=== PATIENT | male | born 1960 | race Caucasian/White ===

== ENCOUNTER 2018-02-20 16:47 | Emergency (ER) | payer MEDICAID, OTHER ==
[2018-02-20] MEDS ORDERED: OLANZapine 10 MG/2 ML VIAL IM ONE (17:01)
--- NOTE | 2018-02-20 17:04 | EDPHY ---
H & P Source: Patient Exam Limitations: No limitations - Family History Significant Family History: No pertinent family hx Time Seen by Provider: 02/20/18 16:53 HPI/ROS: CHIEF COMPLAINT: Psychosis HISTORY OF PRESENT ILLNESS: The patient has a history of bipolar mood disorder. He presents to the ED with pressured speech, agitation and confusion. The patient reports he has not been taking his lithium for the past several days or weeks. The patient reportedly was recently hospitalized at the [facility] as an inpatient. The patient was [place] walking [place] shopping [place] nonsensical in disoriented. He was placed on an M1 psychiatric hold by police and brought to the emergency department. REVIEW OF SYSTEMS: A comprehensive 10 point review of systems is otherwise negative aside from elements mentioned in the history of present illness. (Kevyn Gupta) - Physical Exam Exam: General Appearance: Alert, no distress Eyes: Pupils equal and round no pallor or injection ENT, Mouth: Mucous membranes moist Respiratory: There are no retractions, lungs are clear to auscultation Cardiovascular: Regular rate and rhythm Gastrointestinal: Abdomen is soft and nontender, no masses, bowel sounds normal Neurological: A&O, normal motor function, normal sensory exam, normal cranial nerves Skin: Warm and dry, no rashes Musculoskeletal: Neck is supple nontender Extremities: symmetrical, full range of motion Psychiatric: Tangential, pressured speech, slightly agitated, denies suicidal or homicidal ideation (Kevyn Gupta) Constitutional: Initial Vital Signs Temperature (C) 37 C 02/20/18 16:47 Heart Rate 77 02/20/18 16:47 Respiratory Rate 16 02/20/18 16:47 Blood Pressure 147/106 H 02/20/18 16:47 O2 Sat (%) 97 02/20/18 16:47 O2 Delivery Mode Room Air Allergies/Adverse Reactions: No Known Allergies Allergy (Unverified 02/20/18 16:56) Home Medications: Medication Instructions Recorded [employer] Carbonate 02/20/18 Seroquel 02/20/18 Synthroid 02/20/18 Medical Decision Making ED Course/Re-evaluation: The patient presents to the ED with psychosis and likely decompensated bipolar mood disorder. Patient did take 10 mg of oral Zyprexa. Screening laboratory studies were sent. The patient has been cooperative throughout his stay in the emergency department. The patient did respond to oral Zyprexa and is resting comfortably in the room at 6:00 p.m.. The patient has been medically cleared for psychiatric evaluation by myself at 6 :00 p.m.. The patient is turned over to Dr. Morris at shift change. He is given another 10mg of Zyprexa at 9pm. (Kevyn Gupta) I took over care of this patient at 8:30 p.m.. This patient is on an M1 hold for psychosis and decompensated bipolar mood disorder. He has been seen and evaluated by Behavioral Health. They will admit him for inpatient management. They are contacting the [place] currently where he has been admitted before. 10:20 p.m., the patient was up, pacing, agitated. The patient was given 10 mg of oral Valium. 11:00 p.m., the patient's remaining emergency department course under my care has been uneventful. The patient awaits admission for inpatient psychiatric management. Care turned over to Dr. Jose Weber at this time. (Raphael Morris) 0615: Patient sleeping throughout the evening. No acute events. Pending Placement. On m1 Hold. Bipolar/psychosis. Signed over at 6:30 a.m. Shift change to Dr. Andrew. (Jose Weber) Differential Diagnosis: Differential diagnosis considered includes psychosis, bipolar mood disorder, methamphetamine intoxication, substance abuse (Kevyn Gupta) Other Provider: Care assumed at 6:35 a.m. Plan for inpatient placement for bipolar disorder. 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 Awaiting acceptance at receiving facility. 1050: Patient personally evaluated. Ambulatory, cooperative. Discussed with accepting physician at this time on the phone by his request. The patient will be transferred to [facility] for inpatient psychiatric hospital bed not available at this facility, in stable condition; accepting physician is Dr. Pro. EMTALA form completed. (Omar Andrew) - Data Points Laboratory Results: Laboratory Results 02/20/18 17:14 02/20/18 17:14 Medications Given: Discontinued Medications Diazepam (Valium) 10 mg PO EDNOW ONE Stop: 02/20/18 22:17 Last Admin: 02/20/18 22:19 Dose: 10 mg Olanzapine (Zyprexa Injection) 10 mg IM EDNOW ONE Stop: 02/20/18 17:02 Last Admin: 02/20/18 17:19 Dose: Not Given Olanzapine (Zyprexa Zydis) 10 mg PO EDNOW ONE Stop: 02/20/18 17:16 Last Admin: 02/20/18 17:19 Dose: 10 mg Olanzapine (Zyprexa Zydis) 10 mg PO EDNOW ONE Stop: 02/20/18 20:35 Last Admin: 02/20/18 20:37 Dose: 10 mg Olanzapine (Zyprexa Zydis) 10 mg PO EDNOW ONE Stop: 02/21/18 09:33 Last Admin: 02/21/18 09:35 Dose: 10 mg Departure - Departure Disposition: Other Psych, Not Monika Clinical Impression: Bipolar 1 disorder Condition: Fair Referrals: Patient,NotPresent [Primary Care Provider] - As per Instructions
[2018-02-20] MEDS ORDERED: OLANZapine DISINTEGR 10 MG TAB PO ONE ×2 (17:15→20:34)
[2018-02-20 17:26] LABS: PLATELET COUNT 226 10^3/uL (150-400)
[2018-02-20] MEDS ORDERED: OLANZapine DISINTEGR 10 MG TAB ONE (20:33)
--- NOTE | 2018-02-20 22:03 | ASMTLCPROG ---
Notes Note: Notes: PT unable to be assessed to due rambling and illogical speech. PT was just given another 10 mg of Zyprexa. PT was pacing and said multiple times someone was going to hurt him. PT is unable to give any collateral contact information. 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 Date Signed: 02/20/2018 10:03 PM Electronically Signed By:Veronica Morales
[2018-02-20] MEDS ORDERED: DIAZEPAM 5 MG TAB ONE (22:12)
[2018-02-20] MEDS ORDERED: DIAZEPAM 5 MG TAB PO ONE (22:16)
--- NOTE | 2018-02-21 09:12 | ASMTTLCEVL ---
TLC Evaluation - Basic Information Developmental history Notes: Unable to assess Abuse concerns Answers: None Marital status/children Notes: According to Sarah, the patient is . He has two adult children. The patient's divorce was related to his MH issues. Living situation Notes: The patient has lived at home with his father, Sarah, for the past 10 years in [place], [place]. 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 Notes: The patient was in the . The patient's father, Sarah, reported that the patient had his first psychotic break during basic training. Legal Notes: Unable to assess Worship/Spiritual Notes: The patient reported none that would interfere with treatment. He stated, "I love Andrey." Leisure Notes: Unable to assess Collateral Notes: The collateral data was obtained from current and previous [facility] ed records/staff, 27-65 M1, previous providers: 's Administration, and family members: Sarah, father of the patient. Patient's strengths Answers: Funny/Using Humor (Please select at least TWO strengths): Supportive Family Evaluation Start Date and 02/21/2018 07:00 AM Time Hospital Status Answers: M1 Hold 72-hr M1 Hold Start Date 02/20/2018 04:00 PM and Time Patient statement Notes: "They are trying to hurt me. I was a good lexy before all this." "I love you." "Where'd you get that irby? From [place]?" "Can I touch you?" "Can I borrow a pen or do I need one?" "I don't know. I'm not going to hurt nobody." "We don't cuss. I wasn't breaking stuff in the restaurant. I'm sorry. It was a beautiful family. I didn't mean to hurt them." "My brain was feeling crazy." "I love Andrey." "I want to live forever." "I was driving everywhere, I had to get there really fast. I have errands to run; I'm going to call in sick. "I didn't get any rest." Narrative Notes: The patient is a 57 year old male, , unemployed, with a history of Bipolar Disorder. He lives with his father, Sarah in [place], [place]. The patient arrived via EMS on an M1 hold placed by police. Per M1 Hold, "Rodger Perez is bipolar and hadn't taken his medication. Ana demeanor would rapidly change from being subdued to aggressive. Rodger was rambling about someone messing with his radio. Rodger's father was contacted and he stated that Rodger had been admitted to the [place] and was released 3 days prior. Rodger was walking around town and he said her coudn't find his shoes." At the time of initial utox testing in the ed @ 17:15 on 02/20, the patients was positive for Benzodiazepines (0.2). On 02/20/18, the tower hand was unable assess due to "rambling and illogical speech." He was pacing and stated multiple times that "someone was going to hurt him." The [place] hospital was contacted for collateral without response. The patient was given Zyprexa, 10mg. He slept through through the night. On 02/21/18, the patient continues to present with rambling and illogical speech including loose associations. The patient is observed pacing in his room; repeatedly re-positioning himselffrom seated to lying down to standing and walking. He requires consistent redirection. He stated, "I don't know. I'm not going to hurt nobody." "We don't cuss. I wasn't breaking stuff in the restaurant. I'm sorry. It was a beautiful family. I didn't mean to hurt them." "My brain was feeling crazy. "I was driving everywhere, I had to get there really fast. I have errands to run; I'm going to call in sick."I didn't get any rest." The patient's father, Sarah, reported that that patient was home yesterday and decided to "move out because he was breaking everything." Sarah reported that the patient has been sick ever since a medication change in November. He reported the patient was hospitalized at [facility] for several weeks. While the patient was hospitalized, his mother . He reported that the patient took his mattress outside and tore it apart, his father purchased him a new mattress that he refuses to sleep on because it is "jinxed." Per Rita Whatley, "He was discharged 02/17/18 (no discharge summary)He was here for one week." Diagnosis History Notes: The patient has a diagnostic history of Unspecified Bipolar and Related Disorder. Prior suicide attempts Notes: The patient stated "I want to live forever." The patient denied any prior suicide attempts. Prior hospitalizations Notes: The patient was discharged from the [place] on 02/17/18. He was there for one week. The patient was hospitalized at [facility] in November of 2017. Treatment Responses Notes: The patient told police he had stopped taking his medications. He reported taking Seroquel and [place] sporadically. History of violence Notes: Unable to assess Therapist: None Psychiatrist: Dr. Barbara Henderson Medications (name, dosage, route, freq uency) Notes: Per Rita Whatley: [place], 600, mg, PO, HS Quetiapine, 500mg, PO, HS Tamazepam, 30mg, PO, HS Allergies/Reaction Notes: No known allergies Sleep Notes: The patient stated "I didn't get any rest." Appetite Notes: Unable to assess Medical/Surgical history Notes: Unable to assess Substance use history (frequency, intensity, his tory, duration) Notes: Unable to assess Family composition Notes: The patient lives with his father, Sarah in [place], [place]. His 90 y/o mother in November of 2017. Need for family Answers: Yes participation in patient's care Family psychiatric/substance abuse history Notes: Unable to assess TLC Evaluation - Mental Status Exam Appearance: Answers: Unkempt Disheveled Eye Contact: Answers: Appropriate for Culture Good/Direct Staring Mood: Answers: Elevated Labile Affect: Answers: Anxious Cheerful Happy Hyperactive Labile Sad Tearful Behavior: Answers: Cooperative Anxious Crying Restless Talkative Wandering Speech: Answers: Illogical Unclear Excessive Garbled Loose Associations Rambling Thought Process: Answers: Disorganized Oriented Loose Associations Paranoid Racing Thoughts Tangential Insight: Answers: Poor Judgement: Answers: Poor Manic Signs/Symptoms Answers: Irritability Racing Thoughts Depression Answers: Crying Spells Signs/Symptoms: Difficulty Concentrating Anxiety Signs/Symptoms Answers: Generalized Anxiety Delusions: Answers: Paranoid Ideation Current Stage of Change Answers: Precontemplation Pt reported to have Answers: No suicidal/self-injuring ideation/behavior? Pt reported to be making Answers: No suicidal/self-injuring threats? Pt reported to have Answers: No aggression/assault ideation/behavior? Pt reported to be making Answers: No aggression/assault threats? Pt exhibits inability to Answers: Yes care for self/grave disability? Ideation/behavior is Answers: No chronic? Patient has a specific Answers: No plan? Pt has access to means to Answers: No execute the plan? Ideation involves Answers: No serious/lethal intent? Ideation has Answers: No delusional/hallucinatory content? History of Answers: No suicidal/self-injuring ideation, behavior, or threats? History of Answers: No aggressive/assaultive ideation, behavior, or threats? History of serious Answers: No physical harm to self/others while in treatment setting? [facility] Evaluation - Suicide/Homicide Risk Suicide Risk Factors: Answers: < 20 or > 40 Years of Age Bipolar Disorder Psychotic Disorder Rapid Mood Shifts Recent of Loved One Homicide/violence risk Answers: Paranoid Ideation factors: Current Suicidal Answers: No Ideation? Current Suicidal Ideation Answers: No in the Past 48 Hours? Current Suicidal Ideation Answers: No in the Past Month? Current Suicidal Answers: No Ideation, Worst Ever? Suicide Internal Answers: Worship Beliefs Protective Factors: Suicide External Answers: Positive Therapeutic Protective Factors: Relationships Responsibility to Children Ranking of patient's Answers: Low suicidal risk: Ranking of patient's Answers: Low homicidal risk: [facility] Evaluation - Wrap-up BDI Total Score: N/A BDI Question #2 Score: N/A BDI Question #9 Score: N/A BSS Total Score: N/A AXIS I Diagnosis (include DSM-V and ICD-10 codes), must also be entered in [employer], which is the source of truth. Notes: Unspecified Bipolar and Related Disorder 296.80 (F31.9) Evaluation End Date and 02/21/2018 09:00 AM Time (HH:MM): Date Signed: 02/21/2018 09:11 AM Electronically Signed By:Jeri Portillo
[2018-02-21] MEDS ORDERED: OLANZapine DISINTEGR 10 MG TAB PO ONE ×2 (09:32→12:28)
[2018-02-21] MEDS ORDERED: OLANZapine DISINTEGR 10 MG TAB ONE (09:32)
[2018-02-21 12:43] VITALS: BP 122/75
--- NOTE | 2018-02-21 12:55 | ASMTTCLDSP ---
TLC Discharge Disposition Disposition: Answers: Transfer Discharge Concerns/Recommendations: Notes: In consultation with [facility] ED physician, Omar Andrew MD and [facility] on-call psychiatrist, Damian Verde MD, both concurred that pt appears to meet 27-65 criteria requiring psychiatric hospitalization as the patient appears to be an imminent risk of harm to self and gravely disabled due to a mental illness condition. Was patient given the Answers: Not applicable Inpatient Behavioral Health Prohibited Belongings List while in the ED? Type of Hold: Answers: M1/72-hour Hold Hold initiated by: Answers: Police For Transfers, Accepting 's Administration Facility: For Transfers, Accepting Dr. Pro Psychiatrist: For Transfers, Reason [facility] ; [facility] Inpatient at Capacity Patient is Being Transferred: Date Signed: 02/21/2018 12:54 PM Electronically Signed By:Jeri Portillo
== END 2018-02-21 13:12 ==
DX: F31.5 Bipolar disorder, current episode depressed, severe, with psychotic features (principal); Z79.899 Other long term (current) drug therapy
CPT/HCPCS: 80305; G0480